=== PATIENT | female | born 1950 | race Caucasian/White ===

== ENCOUNTER → 2016-11-18 | Outpatient (CLI) | payer BC ==
[~2016-11-18] MED LIST: ADVAIR 250/5028 PUFF IN; AMOXICOT500 MG PO; COUMADIN 5MG TAB5 MG PO; COUMADIN2.5 MG PO; DARVOCET-N 1001 TAB PO; ENBREL50 MG/ML SC; HYDROCHLOROTHIA25 M1 PO; LABETALOL200 MG PO; LEVOTHYROXIN0.125 MG PO; LISINOPRIL40 MG PO; METHOTREXATE 22.5 MG PO; OMEPRAZOLE20 MG PO; SIMVASTATIN20 MG PO; VICODIN 5/500 T1 TAB PO; WARFARIN SODIUM4 MG PO
== END ==
LOC: LAB 08:12
DX: I35.9 Nonrheumatic aortic valve disorder, unspecified (principal); Z79.01 Long term (current) use of anticoagulants; Z51.81 Encounter for therapeutic drug level monitoring

== ENCOUNTER → 2016-11-27 | Outpatient (CLI) | payer BC | LOC: LAB 08:14 | DX: I35.9 Nonrheumatic aortic valve disorder, unspecified (principal) ==